=== PATIENT | male | born 1995 | race Caucasian/White ===

== ENCOUNTER 2022-12-24 15:05 | Inpatient (IN) | payer OTHER ==
[2022-12-24 17:01] VITALS: BMI 30.4
[2022-12-24] MEDS ORDERED: NALOXONE HCL (KLOXXADO) 8 MG SPRAY NS PRN (19:11)
[2022-12-24] MEDS ORDERED: BENZOCAINE/MENTHOL (CHLORASEPTIC ) LOZENGE MM PRN (19:11)
[2022-12-24] MEDS ORDERED: MAGNESIUM HYDROX 2400MG/30ML ORAL SUSPENSION 30 ML CUP PO PRN (19:11)
[2022-12-24] MEDS ORDERED: IBUPROFEN 400 MG TABLET (FP) PO PRN (19:11)
[2022-12-24] MEDS ORDERED: BENZONATATE 200 MG CAPSULE PO PRN (19:11)
[2022-12-24] MEDS ORDERED: ONDANSETRON *ODT* 4 MG TABLET SL PRN (19:11)
[2022-12-24] MEDS ORDERED: LOPERAMIDE HCL 2 MG CAPSULE PO PRN (19:11)
[2022-12-24] MEDS ORDERED: DICYCLOMINE HCL 10 MG CAPSULE PO PRN (19:11)
[2022-12-24] MEDS ORDERED: BISMUTH SUBSALICYLATE 524 MG/30 ML PO PRN (19:11)
[2022-12-24] MEDS ORDERED: NALOXONE HCL 0.4 MG/ML VIAL IM PRN (19:11)
[2022-12-24] MEDS ORDERED: POLYETHYLENE GLYCOL (HEALTHYLAX) 3350 17 GM PACKET PO PRN (19:11)
[2022-12-24] MEDS ORDERED: guaiFENesin 600 MG TABLET.ER (FP) PO PRN (19:11)
[2022-12-24] MEDS ORDERED: MAG HYDROX/AL HYDROX/SIMETH 30 ML UNIT-DOSE CUP PO PRN (19:11)
[2022-12-24] MEDS ORDERED: diazePAM 5 MG TABLET ONE (19:33)
[2022-12-24] MEDS ORDERED: hydrOXYzine PAMOATE 25 MG CAPSULE (FP) PO ONE (19:33)
[2022-12-24] MEDS: diazePAM 5 MG TABLET PO PRN (19:34)
[2022-12-24] MEDS: hydrOXYzine PAMOATE 25 MG CAPSULE (FP) PO PRN (19:34)
[2022-12-24] MEDS ORDERED: MELATONIN 5 MG TABLETS PO SCH (22:00)
[2022-12-24] MEDS: diazePAM 5 MG TABLET PO SCH (22:55)
[2022-12-24] MEDS: ACETAMINOPHEN 325 MG TABLET (FP) PO PRN (22:55)
[2022-12-24] MEDS: THIAMINE HCL 100 MG TABLET (FP) PO SCH (22:55)
[2022-12-25] MEDS: diazePAM 5 MG TABLET PO SCH ×4 (05:29→22:09)
[2022-12-25] MEDS: PRENATAL VITAMINS W/ FOLIC ACID TABLET (FP) PO SCH (10:05)
[2022-12-25 10:25] LABS: POTASSIUM 3.9 mmol/L (3.5-5.1)
[2022-12-25 10:34] LABS: ALBUMIN 3.4 g/dl (3.4-5.0); BLOOD UREA NITROGEN 14.8 mg/dL (7-18)
[2022-12-25 10:38] LABS: CREATININE 0.9 mg/dL (0.55-1.3)
[2022-12-25 10:40] LABS: BILIRUBIN,TOTAL 0.5 mg/dL (0.2-1); TOT PROT 6.9 g/dl (6.4-8.2)
[2022-12-25 10:50] LABS: HEMATOCRIT 41.3 % (35.4-49); HEMOGLOBIN 13.9 GM/dL (11.7-16.9); MCH 28.4 pg (25.7-33.7); MCHC 33.6 g/dl (32.0-35.9); MEAN CELL VOLUME 84.5 fl (80-96); MEAN PLT VOLUME 8.3 fl (7.5-11.1); PLATELET COUNT 236 10^3/uL (134-434); RBC 4.89 M/mm3 (4.00-5.60); RDW 13.7 % (11.9-15.9); WHITE BLOOD COUNT 6.3 K/mm3 (4.0-10.0)
[2022-12-25] MEDS: diazePAM 5 MG TABLET PO PRN (12:21)
[2022-12-25] MEDS: GABAPENTIN 300 MG CAPSULE PO SCH ×2 (13:10→22:08)
[2022-12-25] MEDS: ACETAMINOPHEN 325 MG TABLET (FP) PO PRN (17:23)
[2022-12-25] MEDS: IBUPROFEN 600 MG TABLET (FP) PO PRN (22:07)
[2022-12-25] MEDS: QUEtiapine FUMARATE 200 MG TABLET PO SCH (22:08)
[2022-12-25] MEDS: TRIHEXYPHENIDYL HCL 2 MG TABLET PO SCH (22:08)
[2022-12-25] MEDS: THIAMINE HCL 100 MG TABLET (FP) PO SCH (22:08)
[2022-12-26] MEDS: diazePAM 5 MG TABLET PO SCH ×3 (05:39→21:33)
[2022-12-26] MEDS: GABAPENTIN 300 MG CAPSULE PO SCH ×3 (05:39→21:31)
[2022-12-26] MEDS: PRENATAL VITAMINS W/ FOLIC ACID TABLET (FP) PO SCH (10:39)
[2022-12-26] MEDS: diazePAM 5 MG TABLET PO PRN ×2 (11:39→17:55)
[2022-12-26] MEDS: IBUPROFEN 600 MG TABLET (FP) PO PRN (17:52)
[2022-12-26] MEDS: METHOCARBAMOL 500 MG TABLET PO PRN (19:01)
[2022-12-26] MEDS: QUEtiapine FUMARATE 200 MG TABLET PO SCH (21:31)
[2022-12-26] MEDS: TRIHEXYPHENIDYL HCL 2 MG TABLET PO SCH (21:32)
[2022-12-26] MEDS: THIAMINE HCL 100 MG TABLET (FP) PO SCH (21:36)
[2022-12-27] MEDS: diazePAM 5 MG TABLET PO SCH ×2 (05:39→17:42)
[2022-12-27] MEDS: GABAPENTIN 300 MG CAPSULE PO SCH ×3 (05:40→21:47)
[2022-12-27] MEDS: PRENATAL VITAMINS W/ FOLIC ACID TABLET (FP) PO SCH (10:17)
[2022-12-27] MEDS: diazePAM 5 MG TABLET PO PRN (13:25)
[2022-12-27] MEDS: QUEtiapine FUMARATE 200 MG TABLET PO SCH (21:45)
[2022-12-27] MEDS: TRIHEXYPHENIDYL HCL 2 MG TABLET PO SCH (21:45)
[2022-12-27] MEDS: THIAMINE HCL 100 MG TABLET (FP) PO SCH (21:46)
[2022-12-27] MEDS: METHOCARBAMOL 500 MG TABLET PO PRN (21:46)
[2022-12-27] MEDS: hydrOXYzine PAMOATE 25 MG CAPSULE (FP) PO PRN (21:46)
[2022-12-28] MEDS: GABAPENTIN 300 MG CAPSULE PO SCH ×2 (05:34→13:11)
[2022-12-28] MEDS ORDERED: diazePAM 5 MG TABLET PO ONE (06:00)
[2022-12-28] MEDS: PRENATAL VITAMINS W/ FOLIC ACID TABLET (FP) PO SCH (10:15)
[2022-12-28] MEDS: METHOCARBAMOL 500 MG TABLET PO PRN (11:21)
[2022-12-28] MEDS: hydrOXYzine PAMOATE 25 MG CAPSULE (FP) PO PRN (11:21)
[2022-12-28 13:07] VITALS: BP 121/74; PULSE 74; RESP 18; TEMP 96.9
== END 2022-12-28 14:42 | disposition other institution (70) | DRG 775 ==
LOC: YASAS 15:05 → Y3N 19:52
PROVIDERS: ADMIT Allergy & Immunology; ATTEND Surgery
PROC: HZ2ZZZZ Detoxification Services for Substance Abuse Treatment (ICD-10-PCS; principal; 2022-12-24)
DX: F10.230 Alcohol dependence with withdrawal, uncomplicated (principal); F17.210 Nicotine dependence, cigarettes, uncomplicated; F25.0 Schizoaffective disorder, bipolar type; F41.9 Anxiety disorder, unspecified
CPT/HCPCS: 36415; 80053; 85027; 86780; 87635

== ENCOUNTER 2022-12-28 14:57 | Inpatient (IN) | payer OTHER ==
[2022-12-28] MEDS ORDERED: NALOXONE HCL (KLOXXADO) 8 MG SPRAY NS PRN (15:17)
[2022-12-28] MEDS ORDERED: ACETAMINOPHEN 325 MG TABLET (FP) PO PRN (15:17)
[2022-12-28] MEDS ORDERED: LOPERAMIDE HCL 2 MG CAPSULE PO PRN (15:17)
[2022-12-28] MEDS ORDERED: COLLOIDAL OATMEAL 1 BAR EACH TP PRN (15:17)
[2022-12-28] MEDS ORDERED: BENZONATATE 200 MG CAPSULE PO PRN (15:17)
[2022-12-28] MEDS ORDERED: AMMONIUM LACTATE 12% LOTION 225 GM BOTTLE TP PRN (15:17)
[2022-12-28] MEDS ORDERED: MAGNESIUM HYDROX 2400MG/30ML ORAL SUSPENSION 30 ML CUP PO PRN (15:17)
[2022-12-28] MEDS ORDERED: NALOXONE HCL 0.4 MG/ML VIAL IVPUSH PRN (15:17)
[2022-12-28] MEDS ORDERED: guaiFENesin 600 MG TABLET.ER (FP) PO PRN (15:17)
[2022-12-28] MEDS ORDERED: BENZOCAINE/MENTHOL (CHLORASEPTIC ) LOZENGE MM PRN (15:17)
[2022-12-28] MEDS ORDERED: MAG HYDROX/AL HYDROX/SIMETH 30 ML UNIT-DOSE CUP PO PRN (15:17)
[2022-12-28] MEDS ORDERED: NICOTINE POLACRILEX 4 MG GUM BUC PRN (15:17)
[2022-12-28] MEDS ORDERED: POLYETHYLENE GLYCOL (HEALTHYLAX) 3350 17 GM PACKET PO PRN (15:17)
[2022-12-28] MEDS ORDERED: hydrOXYzine PAMOATE 25 MG CAPSULE (FP) PO PRN (15:17)
[2022-12-28] MEDS: THIAMINE HCL 100 MG TABLET (FP) PO SCH (21:25)
[2022-12-28] MEDS: MELATONIN 5 MG TABLETS PO SCH (21:25)
[2022-12-28] MEDS: GABAPENTIN 400 MG CAPSULE PO SCH (21:25)
[2022-12-28] MEDS: QUEtiapine FUMARATE 400 MG TABLET PO SCH (21:25)
[2022-12-28] MEDS: TRIHEXYPHENIDYL HCL 2 MG TABLET PO SCH (21:26)
[2022-12-28] MEDS ORDERED: GABAPENTIN 300 MG CAPSULE PO SCH (22:00)
[2022-12-29] MEDS: GABAPENTIN 400 MG CAPSULE PO SCH ×3 (07:16→21:12)
[2022-12-29] MEDS: PRENATAL VITAMINS W/ FOLIC ACID TABLET (FP) PO SCH (10:00)
[2022-12-29 13:32] LABS: HIV INTERPRETATION NEGATIVE (NEGATIVE)
[2022-12-29] MEDS: NICOTINE 14 MG/24 HOURS TOPICAL PATCH TD PRN (16:09)
[2022-12-29] MEDS: QUEtiapine FUMARATE 400 MG TABLET PO SCH (21:12)
[2022-12-29] MEDS: TRIHEXYPHENIDYL HCL 2 MG TABLET PO SCH (21:12)
[2022-12-29] MEDS: MELATONIN 5 MG TABLETS PO SCH (21:12)
[2022-12-29] MEDS: THIAMINE HCL 100 MG TABLET (FP) PO SCH (21:12)
[2022-12-30] MEDS: GABAPENTIN 400 MG CAPSULE PO SCH (06:28)
[2022-12-30] MEDS: PRENATAL VITAMINS W/ FOLIC ACID TABLET (FP) PO SCH (10:39)
[2022-12-30] MEDS: GABAPENTIN 300 MG CAPSULE PO SCH ×2 (13:32→21:10)
[2022-12-30] MEDS: QUEtiapine FUMARATE 400 MG TABLET PO SCH (21:09)
[2022-12-30] MEDS: TRIHEXYPHENIDYL HCL 2 MG TABLET PO SCH (21:10)
[2022-12-30] MEDS: THIAMINE HCL 100 MG TABLET (FP) PO SCH (21:10)
[2022-12-30] MEDS: MELATONIN 5 MG TABLETS PO SCH (21:11)
[2022-12-31] MEDS: GABAPENTIN 300 MG CAPSULE PO SCH ×2 (06:25→12:59)
[2022-12-31] MEDS: PRENATAL VITAMINS W/ FOLIC ACID TABLET (FP) PO SCH (09:57)
[2022-12-31] MEDS: IBUPROFEN 600 MG TABLET (FP) PO PRN (20:16)
[2022-12-31] MEDS: TRIHEXYPHENIDYL HCL 2 MG TABLET PO SCH (21:15)
[2022-12-31] MEDS: QUEtiapine FUMARATE 400 MG TABLET PO SCH (21:15)
[2022-12-31] MEDS: THIAMINE HCL 100 MG TABLET (FP) PO SCH (21:15)
[2022-12-31] MEDS: MELATONIN 5 MG TABLETS PO SCH (21:15)
[2022-12-31] MEDS: METHOCARBAMOL 500 MG TABLET PO PRN (21:16)
[2022-12-31] MEDS: GABAPENTIN 400 MG CAPSULE PO SCH (21:17)
[2023-01-01] MEDS: GABAPENTIN 400 MG CAPSULE PO SCH ×3 (06:52→21:06)
[2023-01-01] MEDS: PRENATAL VITAMINS W/ FOLIC ACID TABLET (FP) PO SCH (09:34)
[2023-01-01] MEDS: NICOTINE 14 MG/24 HOURS TOPICAL PATCH TD PRN (13:36)
[2023-01-01] MEDS: IBUPROFEN 600 MG TABLET (FP) PO PRN (15:48)
[2023-01-01] MEDS: QUEtiapine FUMARATE 400 MG TABLET PO SCH (21:06)
[2023-01-01] MEDS: THIAMINE HCL 100 MG TABLET (FP) PO SCH (21:06)
[2023-01-01] MEDS: TRIHEXYPHENIDYL HCL 2 MG TABLET PO SCH (21:06)
[2023-01-01] MEDS: MELATONIN 5 MG TABLETS PO SCH (21:06)
[2023-01-01] MEDS: METHOCARBAMOL 500 MG TABLET PO PRN (21:07)
[2023-01-02] MEDS: GABAPENTIN 400 MG CAPSULE PO SCH ×3 (06:09→21:34)
[2023-01-02] MEDS: PRENATAL VITAMINS W/ FOLIC ACID TABLET (FP) PO SCH (10:14)
[2023-01-02] MEDS: IBUPROFEN 600 MG TABLET (FP) PO PRN (14:53)
[2023-01-02] MEDS: IBUPROFEN 400 MG TABLET (FP) PO PRN (21:33)
[2023-01-02] MEDS: MELATONIN 5 MG TABLETS PO SCH (21:34)
[2023-01-02] MEDS: THIAMINE HCL 100 MG TABLET (FP) PO SCH (21:34)
[2023-01-02] MEDS: QUEtiapine FUMARATE 400 MG TABLET PO SCH (21:34)
[2023-01-02] MEDS: TRIHEXYPHENIDYL HCL 2 MG TABLET PO SCH (21:35)
[2023-01-03] MEDS: GABAPENTIN 400 MG CAPSULE PO SCH ×3 (06:39→21:08)
[2023-01-03] MEDS: PRENATAL VITAMINS W/ FOLIC ACID TABLET (FP) PO SCH (10:22)
[2023-01-03] MEDS: TRIHEXYPHENIDYL HCL 2 MG TABLET PO SCH (21:07)
[2023-01-03] MEDS: MELATONIN 5 MG TABLETS PO SCH (21:08)
[2023-01-03] MEDS: THIAMINE HCL 100 MG TABLET (FP) PO SCH (21:08)
[2023-01-03] MEDS: QUEtiapine FUMARATE 400 MG TABLET PO SCH (21:08)
[2023-01-04] MEDS: GABAPENTIN 400 MG CAPSULE PO SCH ×3 (06:21→21:02)
[2023-01-04] MEDS: PRENATAL VITAMINS W/ FOLIC ACID TABLET (FP) PO SCH (10:27)
[2023-01-04] MEDS: IBUPROFEN 600 MG TABLET (FP) PO PRN (16:22)
[2023-01-04] MEDS: THIAMINE HCL 100 MG TABLET (FP) PO SCH (21:02)
[2023-01-04] MEDS: MELATONIN 5 MG TABLETS PO SCH (21:02)
[2023-01-04] MEDS: TRIHEXYPHENIDYL HCL 2 MG TABLET PO SCH (21:02)
[2023-01-04] MEDS: QUEtiapine FUMARATE 400 MG TABLET PO SCH (21:02)
[2023-01-05] MEDS: GABAPENTIN 400 MG CAPSULE PO SCH ×3 (06:35→21:13)
[2023-01-05] MEDS: PRENATAL VITAMINS W/ FOLIC ACID TABLET (FP) PO SCH (09:46)
[2023-01-05] MEDS: IBUPROFEN 600 MG TABLET (FP) PO PRN (09:46)
[2023-01-05] MEDS: THIAMINE HCL 100 MG TABLET (FP) PO SCH (21:13)
[2023-01-05] MEDS: TRIHEXYPHENIDYL HCL 2 MG TABLET PO SCH (21:13)
[2023-01-05] MEDS: QUEtiapine FUMARATE 400 MG TABLET PO SCH (21:13)
[2023-01-05] MEDS: MELATONIN 5 MG TABLETS PO SCH (21:13)
[2023-01-06] MEDS: GABAPENTIN 400 MG CAPSULE PO SCH ×3 (06:34→21:18)
[2023-01-06] MEDS: PRENATAL VITAMINS W/ FOLIC ACID TABLET (FP) PO SCH (10:08)
[2023-01-06] MEDS: IBUPROFEN 600 MG TABLET (FP) PO PRN ×2 (10:09→18:53)
[2023-01-06] MEDS: NICOTINE 14 MG/24 HOURS TOPICAL PATCH TD PRN (10:09)
[2023-01-06] MEDS: TRIHEXYPHENIDYL HCL 2 MG TABLET PO SCH (21:18)
[2023-01-06] MEDS: QUEtiapine FUMARATE 400 MG TABLET PO SCH (21:18)
[2023-01-06] MEDS: THIAMINE HCL 100 MG TABLET (FP) PO SCH (21:18)
[2023-01-06] MEDS: MELATONIN 5 MG TABLETS PO SCH (21:18)
[2023-01-07] MEDS: GABAPENTIN 400 MG CAPSULE PO SCH ×3 (06:50→21:07)
[2023-01-07] MEDS: PRENATAL VITAMINS W/ FOLIC ACID TABLET (FP) PO SCH (10:17)
[2023-01-07] MEDS: THIAMINE HCL 100 MG TABLET (FP) PO SCH (21:07)
[2023-01-07] MEDS: MELATONIN 5 MG TABLETS PO SCH (21:07)
[2023-01-07] MEDS: TRIHEXYPHENIDYL HCL 2 MG TABLET PO SCH (21:07)
[2023-01-07] MEDS: QUEtiapine FUMARATE 400 MG TABLET PO SCH (21:07)
[2023-01-07] MEDS: IBUPROFEN 600 MG TABLET (FP) PO PRN (21:08)
[2023-01-08] MEDS: GABAPENTIN 400 MG CAPSULE PO SCH ×3 (06:29→21:06)
[2023-01-08] MEDS: PRENATAL VITAMINS W/ FOLIC ACID TABLET (FP) PO SCH (10:31)
[2023-01-08] MEDS: THIAMINE HCL 100 MG TABLET (FP) PO SCH (21:05)
[2023-01-08] MEDS: MELATONIN 5 MG TABLETS PO SCH (21:05)
[2023-01-08] MEDS: TRIHEXYPHENIDYL HCL 2 MG TABLET PO SCH (21:06)
[2023-01-08] MEDS: QUEtiapine FUMARATE 400 MG TABLET PO SCH (21:06)
[2023-01-08] MEDS: IBUPROFEN 400 MG TABLET (FP) PO PRN (21:07)
[2023-01-09] MEDS: GABAPENTIN 400 MG CAPSULE PO SCH ×3 (06:52→21:29)
[2023-01-09] MEDS: PRENATAL VITAMINS W/ FOLIC ACID TABLET (FP) PO SCH (09:35)
[2023-01-09] MEDS: IBUPROFEN 600 MG TABLET (FP) PO PRN (12:16)
[2023-01-09] MEDS: TRIHEXYPHENIDYL HCL 2 MG TABLET PO SCH (21:28)
[2023-01-09] MEDS: QUEtiapine FUMARATE 400 MG TABLET PO SCH (21:29)
[2023-01-09] MEDS: IBUPROFEN 400 MG TABLET (FP) PO PRN (21:29)
[2023-01-09] MEDS: THIAMINE HCL 100 MG TABLET (FP) PO SCH (21:30)
[2023-01-09] MEDS: MELATONIN 5 MG TABLETS PO SCH (21:44)
[2023-01-10] MEDS: GABAPENTIN 400 MG CAPSULE PO SCH (06:38)
[2023-01-10 06:46] VITALS: BP 113/82; PULSE 84; RESP 17; TEMP 97.8
== END 2023-01-10 09:35 | disposition home or self-care (01) | DRG 772 ==
LOC: YASAS 14:57 → Y3W 14:59
PROVIDERS: ADMIT Allergy & Immunology; ATTEND Psychiatry & Neurology Pain Medicine
PROC: HZ42ZZZ Group Counseling for Substance Abuse Treatment, Cognitive-Behavioral (ICD-10-PCS; principal; 2022-12-28)
DX: F10.20 Alcohol dependence, uncomplicated (principal); F12.20 Cannabis dependence, uncomplicated; F17.210 Nicotine dependence, cigarettes, uncomplicated; F25.0 Schizoaffective disorder, bipolar type; F41.9 Anxiety disorder, unspecified; Z88.8 Allergy status to other drugs, medicaments and biological substances
CPT/HCPCS: 36415; 86803; 87389; 87522